=== PATIENT | female | born 1955 | race Caucasian/White ===

== ENCOUNTER → 2016-06-04 | Outpatient (CLI) | payer OTHER ==
[~2016-06-04] VITALS: Ht 162.6 cm; Wt 104.3 kg
[~2016-06-04] MED LIST: ALDOMET250 MG PO; ARMOUR THYROID180 M1 PO; ARMOUR THYROID60 M1 PO; ASPIR 8181 MG PO; B12INJ IJ; BUDEPRION SR150 MG PO; CALCIUM 500 +1 EAC5 PO; CELEXA10 MG PO; CENTRUM SILVER1 EAC4 PO; CLARITIN10 M2 PO; COLACE100 MG PO; CYMBALTA60 MG PO; DESYREL50 MG PO; DICLOFENAC SOD50 M1 PO; DICLOFENAC SOD50 MG PO; DILT-XR120 MG PO; DILTIAZEM 24HR240 MG PO; DILTIAZEM ER120 M1 PO; DURAGESIC25 MCG/HR TP; EFFEXOR PO; ESTRACE1 MG PO; ESTRADIOL 1 MG T1 M1 PO; FENTANYL PA50 MCG/HR TRANSDERM; FLEXERIL PO; FUROSEMIDE 80 M80 M1 PO; HYDRALAZINE HC100 MG PO; IBUPROFEN 600600 M1 PO; LOVAZA1000 MG PO; LYRICA150 MG PO; METHADONE HCL5 MG PO; METHYLIN20 MG PO; MYRBETRIQ50 MG PO; OXYCODONE HCL5 M1 PO; OXYCONTIN CR 1010 M1 PO; PERCOCET 10-321 EACH PO; PERCOCET 5-3251 EACH PO; PERCOCET 7.5-31 EACH PO; PREDNISONE 5 MG5 M1 PO; PREMPRO 0.625-1 EACH PO; PRISTIQ50 MG PO; PROBIOTIC1 EAC1 PO; PROGESTERONE200 MG PO; PROZAC 20 MG20 MG PO; ROBAXIN 750 MG750 M1 PO; SYMBICORT160 MCG/4. INH; TIROSINT100 MCG PO; TIZANIDINE; TIZANIDINE HCL4 M1 PO; TRAMADOL 50 MG50 MG PO; TRIAMTERENE-HC1 EAC1 PO; VITAMIN B 6 PO; VITAMIN D3400 UNIT PO; WELLBUTRIN XL300 MG PO
--- NOTE | ~2016-06-04 | HPC ---
[address] [place] [address] PAIN MANAGEMENT CONSULTATION Name: ODALYS KAHN Room #: REG [facility] M.Luis M.#: [id number] Admission: 06/04/16 Attend Phys: Aren Brown DO Discharge: Date of : 55 Report #: [id number] THIS REPORT FOR: //name// CC: Lars Joseph MD DATE OF SERVICE: 06/04/2016 REFERRING PHYSICIAN: Dr. Manish Joseph. CHIEF COMPLAINT: Neck pain. HISTORY OF PRESENT ILLNESS: As you know, the patient is a morbidly obese 61-year-old female with a longstanding history of neck and back pain. Apparently, she has undergone surgery for her back pain, but continues to experience some neck pain. She has been advised by neurosurgery at this time. She is not a surgical candidate to undergo treatment for cervical radicular symptoms and was sent to our clinic to trial epidural injection. She is placing pain score at 7/10, states the pain is sharp, constant, stabbing, exacerbated with walking, standing, improves with sitting and medications. She returns today per the request of Dr. Manish Joseph for a cervical epidural injection. ALLERGIES: PROVERA, HYDROCODONE, IBUPROFEN, GABAPENTIN, TRAZODONE, MEPERIDINE. CURRENT MEDICATIONS: Estradiol, fentanyl, calcium carbonate, multivitamin, docusate sodium, aspirin, citalopram, lactobacillus, cholecalciferol, [place] Thyroid, methocarbamol, bupropion, omega-3 fish oil, loratadine, diltiazem, diclofenac, and pregabalin. SOCIAL HISTORY: The patient denies tobacco, IV or illicit drug use. She is unemployed. She is a newly . She is trying to collect workmen's compensation. She is unaccompanied today. IMAGING: No new imaging available. PHYSICAL EXAMINATION: VITAL SIGNS: Blood pressure 147/64, pulse is 96, respiratory rate 16, unlabored. The patient is 96% on room air. Height 5 feet 4 inches tall, weight 230 pounds, BMI calculated 39.5. GENERAL: Well-developed, well-nourished, well-hydrated, morbidly obese 61-year-old female appearing her stated age. Pain is rated at 7/10. HEENT: Normocephalic and atraumatic. Pupils equal, round, reactive to light. EXTREMITIES: Show no clubbing, no cyanosis, no edema. MUSCULOSKELETAL: Upper extremity strength appears equal and symmetrical 5/5. Deconditioning noted bilaterally. Spurling's test is equivocal. [address] [address] PAIN MANAGEMENT CONSULTATION Name: ODALYS KAHN Room #: REG [facility] Georgina#: [id number] Admission: 06/04/16 Attend Phys: Aren Brown DO Discharge: Date of : 55 Report #: [id number] provocation test causes intensification in neck pain. Muscle bulk and tone equal and symmetrical in lower extremities, intact to light touch from C5-T1 dermatomes. ASSESSMENT: 1. Cervical radiculopathy. 2. Cervical spondylosis with radiculopathy. 3. Displacement of cervical intervertebral disk. 4. Cervical spinal stenosis. 5. Chronic intractable pain. PLAN: 1. The patient returns today in followup visit at the request of Dr. Monster Joseph for a cervical epidural injection. We have discussed with the patient the risks and the benefits of this procedure. These risks include but not necessarily limited to bleeding, bruising, infection, worsening pain, no relief of pain, also risk of temporary or permanent muscle weakness, temporary or permanent nerve damage, possible paralysis, post-dural puncture, headache and . The patient states understood and wished to proceed. 2. No medication changes were made at today's visit. The patient to continue current medical therapy as previously prescribed. 3. The patient to return to our clinic in approximately 2 months. At that time, review efficacy of the cervical epidural injection and determine if a repeat injection might be necessary. PROCEDURE NOTE: DESCRIPTION OF PROCEDURE: C7-T1 cervical epidural steroid injection under fluoroscopic guidance. After obtaining written consent, the patient was taken back to fluoroscopy suite, placed in prone position with separate pillows under chest and forehead to decrease cervical lordosis. Skin overlying the cervical area prepped and draped in aseptic fashion. C7-T1 cervical interspace identified by AP fluoroscopy. Skin and subcutaneous tissue overlying the target site of injection was anesthetized with 3 mL of 1% lidocaine. A 20-gauge 4-1/2 inch Tuohy needle was advanced under fluoroscopic guidance towards the epidural space using a midline approach. Epidural space was identified using loss of resistance to air technique. After negative aspiration for heme and cerebrospinal fluid, 1 mL of Omnipaque was injected. A cervical epidurogram was confirmed using both AP and lateral fluoroscopy. After negative aspiration for heme or cerebrospinal fluid, 5 mL of a solution containing 2 mL 40 mg per mL, 80 mg total triamcinolone, 3 mL lidocaine 1% injected slowly. Needle retracted snf and flushed with 1 mL of 1% lidocaine and removed. Sterile bandage placed over injection site. [facility] [address] [place] [address] PAIN MANAGEMENT CONSULTATION Name: ODALYS KAHN Room #: REG CLI TabCelso#: [id number] Admission: 06/04/16 Attend Phys: Aren Brown DO Discharge: Date of : 55 Report #: [id number] The patient tolerated procedure well, carefully escorted to recovery room in stable condition. No apparent complications. After meeting discharge criteria, the patient discharged home. By: [id number] Aren Brown DO /karthikeyan
[2016-06-04 09:12] VITALS: BP 147/64
== END | disposition home or self-care (01) ==
LOC: PAIN 07:02
DX: M50.23 Other cervical disc displacement, cervicothoracic region (principal); M47.22 Other spondylosis with radiculopathy, cervical region; M48.02 Spinal stenosis, cervical region; G89.29 Other chronic pain; E66.01 Morbid (severe) obesity due to excess calories; Z68.39 Body mass index [BMI] 39.0-39.9, adult; Z98.890 Other specified postprocedural states

== ENCOUNTER → 2016-11-06 | Outpatient (CLI) | payer OTHER ==
[~2016-11-06] MED LIST changes: +ALEVE220 MG PO; +NATURE-THRO113.75 MG PO
--- NOTE | ~2016-11-06 | HPC ---
[facility] [place] [address] PAIN MANAGEMENT CONSULTATION Name: ODALYS KAHN Room #: REG [facility] Tab.#: [id number] Admission: 11/06/16 Attend Phys: Aren Brown DO Discharge: Date of : 55 Report #: [id number] THIS REPORT FOR: //name// CC: Lars MEJIA DATE OF SERVICE: 11/06/2016 DATE OF SERVICE: 11/06/2016 CHIEF COMPLAINT: Low back pain with radiation down the right lower extremity. HISTORY OF PRESENT ILLNESS: As you know, the patient is a 61-year-old female, who has referred herself back to our clinic with low back pain, right lower extremity pain with paresthesias. She describes pain as burning, constant, electrical in sensation, places the current pain score at 7/10. The patient indicates that she had surgery at Dr. Cabral at undergoing a laminectomy at the L3-L4 level with improvement in symptoms transiently unfortunately her pain has returned. She returns today in followup visit to discuss her concerns about 7/10 pain. The patient indicates pain is exacerbated with standing, walking, lying and bending, and getting out of bed, improves with medications, sitting in recliner. She returns today in followup visit having referred herself back to our clinic with low back and right lower extremity pain. She has not followed up with a neurosurgeon. ALLERGIES: PROVERA, HYDROCODONE, IBUPROFEN, GABAPENTIN, TRAZODONE, MEPERIDINE. CURRENT MEDICATIONS: ____, naproxen, estradiol, fentanyl, vitamin B6, calcium carbonate, multivitamin, docusate sodium, aspirin, citalopram, lactobacillus, cholecalciferol, methocarbamol, bupropion, omega-3 fish oil, loratadine, diazepam, prednisone, and Lyrica. SOCIAL HISTORY: The patient denies tobacco, IV or illicit drug use. She is unemployed. She is on disability. She is unaccompanied today. IMAGING: No new imaging available. PHYSICAL EXAMINATION: VITAL SIGNS: Blood pressure 144/74, pulse 79, respiratory rate 20, unlabored. The patient is 97% on room air, height 5 feet 4 inches tall. Weight 235 pounds, BMI calculated at 40. GENERAL: Well developed, well nourished, well hydrated, morbidly obese 61-year-old female, appears her stated age, placing pain score 7/10. HEENT: Normocephalic, atraumatic. Pupils equal, round, [place] [address] PAIN MANAGEMENT CONSULTATION Name: ODALYS KAHN Room #: REG [facility]..#: [id number] Admission: 11/06/16 Attend Phys: Aren Brown DO Discharge: Date of : 55 Report #: [id number] Extraocular muscles are intact. Sclerae nonicteric, without injection. EXTREMITIES: Show no clubbing, no cyanosis, no edema. MUSCULOSKELETAL: Lower extremity strength appears equal and symmetrical 5/5. There is reduced muscle bulk on the right when compared to left. The patient states unable to actively flex her hip or extend her knee. There is weakness noted with this activity. Deep tendon reflexes are reduced on the right when compared to left over the patella. Normal Achilles. Gait is antalgic favoring right lower extremity over left. ASSESSMENT: 1. Lumbar radiculopathy. 2. Failed lumbar surgery. 3. 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 4. Chronic low back pain. 5. Chronic intractable pain. PLAN: 1. The patient has referred herself back to our clinic with ongoing right leg pain and right lower extremity pain with paresthesias. The patient indicates that she is "unable to move her right leg and unable to do activities of daily living due to increased leg pain." I have discussed with the patient at length our concerns of myelopathy. I do not have any imaging to determine the potential source of the symptoms, but given the fact the patient has progressively worsened since surgery, I recommend strongly she return to see her surgeon immediately. Imaging will be necessary to be obtained as well as the EMG to help coordinate treatment options. I feel at this time, the patient needs to follow up with her neurosurgeon. We do not have any information here to determine the type of surgery she had nor can she remember what type of surgery it was. The incision appears to be over the L3-L4 level, though this is only estimation based on positioning of the surgical incision. I strongly recommend the patient follow up with her physician as quickly as possible. 2. Would recommend increasing her Lyrica for pain control. She is at 150 mg 3 times a day. We will increase by 50 mg 3 times a day to a total of 600 mg per day. I have given the patient samples of the medication at 50 mg to add to her existing 150 mg dose in hopes of improving pain further. 3. Strongly recommend the patient follow up with Dr. Cabral at , as this weakening right lower extremity is quite concerning. I would recommend further evaluation and possible surgical options if necessary although imaging will be necessary, as will likely an EMG. We will defer to the neurosurgery team, who performed the surgery on the patient for her lumbar radiculopathy and be available to see the patient back in followup visit as necessary. By: D: 08/709 0742 Aren Brown DO /karthikeyan
[2016-11-06 11:01] VITALS: BP 144/74
== END ==
LOC: PAIN 07:08
DX: M54.16 Radiculopathy, lumbar region (principal)

== ENCOUNTER → 2016-12-17 | Outpatient (CLI) | payer OTHER ==
[~2016-12-17] VITALS: Ht 162.6 cm; Wt 105.2 kg
--- NOTE | ~2016-12-17 | HPC ---
[facility] [place] [address] PAIN MANAGEMENT CONSULTATION Name: ODALYS KAHN Room #: REG [facility]..#: [id number] Admission: 12/17/16 Attend Phys: Aren Brown DO Discharge: Date of : 55 Report #: [id number] THIS REPORT FOR: //name// CC: Lars Gonzalez DATE OF SERVICE: 12/17/2016 REFERRING PHYSICIAN: Felix Null MD CHIEF COMPLAINT: Neck pain, bilateral upper extremity pain with paresthesias. HISTORY OF PRESENT ILLNESS: As you know, the patient is a morbidly obese 61-year-old female with longstanding history of neck pain and bilateral lower extremity pain. She returns today to undergo cervical epidural injection under fluoroscopic guidance to address 7/10 pain. She states her pain is sharp, shooting, and spasming in sensation, exacerbated with movement, improves with "sitting still." The patient has returned today in followup visit per the request of her neurosurgeon to undergo cervical epidural injection under fluoroscopic guidance. ALLERGIES: PROVERA, HYDROCODONE, IBUPROFEN, GABAPENTIN, TRAZODONE, and MEPERIDINE. CURRENT MEDICATIONS: Nature-Throid 113.75 mg once a day, naproxen 220 mg twice a day, estradiol 1 mg once a day, pregabalin 150 mg 3 times a day, prednisone 5 mg twice a day, diazepam 120 mg once a day, loratadine 10 mg per day, omega-3 fish oil 1 tab per day, bupropion XL 300 mg twice a day, methocarbamol 750 mg 4 times a day, cholecalciferol 4000 units per day, lactobacillus 1 tab per day, citalopram 10 mg per day, aspirin 81 mg per day, Colace 100 mg per day, multivitamin 1 tab per day, calcium carbonate 1 tab per day, and Duragesic patch 25 mcg q.72 hours. SOCIAL HISTORY: The patient denies tobacco, IV or illicit drug use. She is unemployed. She is on disability. She is accompanied by her present in room today. IMAGING: No new imaging available. PHYSICAL EXAMINATION: VITAL SIGNS: Blood pressure 146/76, pulse 83, respiratory rate 14 and unlabored, the patient is 98% on room air, height 5 feet 4 inches tall, weight 232 pounds, and BMI calculated 39.8[place] [address] PAIN MANAGEMENT CONSULTATION Name: ODALYS KAHN Room #: REG CL Georgina#: [id number] Admission: 12/17/16 Attend Phys: Aren Brown DO Discharge: Date of : 55 Report #: [id number] GENERAL: Well-developed, well-nourished, well-hydrated, morbidly obese 61-year-old female, appearing her stated age, placing current pain score at 7/10. HEENT: Normocephalic, atraumatic. Pupils are equal, round, and reactive to light. Extraocular muscles are intact. Sclerae nonicteric without injection. EXTREMITIES: Show no clubbing, no cyanosis, and no edema. MUSCULOSKELETAL: Upper extremity strength appears equal and symmetrical 5/5. Deconditioning is noted bilaterally. Muscle bulk and tone appears symmetrical. Spurlings test is negative. Cervical provocation testing causes slight intensification of pain. ASSESSMENT: 1. Chronic cervical radiculopathy. 2. Cervical spondylosis with radicular symptoms. 3. Failed cervical spine surgery. 4. Chronic intractable pain. PLAN: 1. The patient has returned today in followup visit requesting to undergo a cervical epidural injection under fluoroscopic guidance to address 7/10 pain. The patient has been referred back to our clinic by her neurosurgeon to undergo next in the series of cervical epidural injections in hopes of improving pain. We have received precertification from the third constitution party payer for the patient to undergo the procedure. She has been advised the risks and benefits of this procedure. These risks include, but are not necessarily limited to bleeding, bruising, infection, worsening of pain, no relief of pain, also risk of temporary or permanent muscle weakness, temporary or permanent nerve damage, possible paralysis and . The patient states understood and wished to proceed. 2. No medication changes were provided at today's visit. The patient to continue current medical therapy as previously prescribed. She does have samples of Lyrica, she has been taking at 150 mg 3 times a day, she can continue this medication that is being now provided by her PCP. 3. We will see the patient back in followup visit on an as needed basis for the next in the series of cervical epidural injections. PROCEDURE NOTE DESCRIPTION OF PROCEDURE: C7-T1 cervical epidural steroid injection under fluoroscopic guidance. After obtaining written consent, the patient was taken back to fluoroscopy suite, placed in prone position with separate pillows under chest and forehead to decrease cervical lordosis. Skin overlying cervical area prepped and draped in aseptic fashion. C7-T1 cervical interspace was identified by AP fluoroscopy. Skin and subcutaneous tissue overlying the target site of injection was [address] [address] PAIN MANAGEMENT CONSULTATION Name: ODALYS KAHN Room #: REG CLRoe Erickson#: [id number] Admission: 12/17/16 Attend Phys: Aren Brown DO Discharge: Date of : 55 Report #: [id number] anesthetized with 3 mL of 1% lidocaine. A 20-gauge 4-1/2-inch Tuohy needle was advanced under fluoroscopic guidance towards the epidural space using a midline approach. Epidural space identified using loss of resistance to air technique. After negative aspiration for heme or cerebrospinal fluid, 1 mL of Omnipaque was injected. A cervical epidurogram was confirmed using both AP and lateral fluoroscopy. After negative aspiration for heme or cerebrospinal fluid, 5 mL of a solution containing 2 mL 40 mg per mL, 80 mg total triamcinolone, 3 mL lidocaine 1% was injected slowly. Needle retracted nursing home, needle tract flushed 3 mL 1% lidocaine. Needle then removed. Sterile bandage placed over injection site. No new motor deficits present in the upper extremity following the procedure. The patient tolerated the procedure well, carefully escorted to recovery room in stable condition. No apparent complication. After meeting discharge criteria, the patient discharged home. <ELECTRONICALLY SIGNED> By: Aren Brown DO 12/25/16 0858 [id number] Aren Brown DO /nt
[2016-12-17 12:54] VITALS: BP 146/76
== END | disposition home or self-care (01) ==
LOC: PAIN 08:46
DX: M47.22 Other spondylosis with radiculopathy, cervical region (principal); G89.29 Other chronic pain; M96.1 Postlaminectomy syndrome, not elsewhere classified; Z88.6 Allergy status to analgesic agent; Z88.8 Allergy status to other drugs, medicaments and biological substances; Z98.890 Other specified postprocedural states; Z79.82 Long term (current) use of aspirin

== ENCOUNTER → 2017-07-09 | Outpatient (CLI) | payer OTHER ==
[~2017-07-09] VITALS: Ht 162.6 cm; Wt 107.2 kg
--- NOTE | ~2017-07-09 | HPC ---
[facility] [place] [address] PAIN MANAGEMENT CONSULTATION Name: ODALYS KAHN Room #: REG [facility]..#: [id number] Admission: 07/09/17 Attend Phys: Aren Brown DO Discharge: Date of : 55 Report #: [id number] THIS REPORT FOR: //name// CC: Lars NAVA DATE OF SERVICE: 07/09/2017 REFERRING PHYSICIANS: Lars Uriostegui DO and Manish Joseph MD CHIEF COMPLAINT: Neck pain, bilateral upper extremity pain and paresthesias. HISTORY OF PRESENT ILLNESS: As you know, the patient is a morbidly obese 62-year-old female returning in followup visit with continued neck pain, bilateral upper extremity pain and paresthesias. She returns today requesting to undergo a cervical epidural injection under fluoroscopic guidance. She denies new injury or new trauma that may have led to symptoms redeveloping. She states her pain is constant, stabbing in sensation, exacerbated with movement, improves with cold temperatures and epidural injections. She places pain score at 6/10. She has had a slow and progressive return of symptoms from an 85% improvement in overall pain all the way back to a 6/10 pain today. She returns requesting a cervical epidural injection to build on success of previous intervention. ALLERGIES: PROVERA, HYDROCODONE, IBUPROFEN, GABAPENTIN, TRAZODONE, and MEPERIDINE. CURRENT MEDICATIONS: Nature-Throid, naproxen, pregabalin, prednisone, loratadine, omega-3 fish oil, bupropion XL, methocarbamol, cholecalciferol, lactobacillus, citalopram, aspirin, Colace, multivitamin, calcium carbonate, and fentanyl. SOCIAL HISTORY: The patient denies tobacco, IV or illicit drug use. She is unemployed. She is on disability. She is receiving workmen's compensation. She is unaccompanied today. IMAGING: No new imaging available. PHYSICAL EXAMINATION: VITAL SIGNS: Blood pressure 129/63, pulse is 92, respiratory rate 16 and unlabored, the patient is 96% on room air, height 5 feet 4 inches tall, weight 236.4 pounds, and BMI calculated 40.6. GENERAL: Well-developed, well-nourished, well-hydrated, class 3 morbidly obese 62-year-old female, appearing stated age, pain is rated at 6/10. [address] [address] PAIN MANAGEMENT CONSULTATION Name: ODALYS KAHN Room #: REG CLI [facility]#: [id number] Admission: 07/09/17 Attend Phys: Aren Brown DO Discharge: Date of : 55 Report #: [id number] HEENT: Normocephalic, atraumatic. Pupils are equal, round, and reactive to light. EXTREMITIES: Show no clubbing, no cyanosis, and no edema. MUSCULOSKELETAL: Upper extremity strength is symmetrical 5/5. Cervical provocation testing causes slight intensification of pain with rotation to the right, negative left. Spurling's test is equivocal. ASSESSMENT: 1. Cervical radiculopathy. 2. Cervical spondylosis with radicular symptoms. 3. Failed cervical spine surgery. 4. Chronic intractable pain. PLAN: 1. The patient returns today in followup visit requesting to undergo a cervical epidural injection under fluoroscopic guidance. The patient had noted 85% improvement in overall pain with previous cervical epidural injection. She returns requesting this injection to be provided today. I advised the patient the risks and benefits, states understood and wished to proceed. 2. No medication changes were made at today's visit. The patient will continue current medical therapy as previously prescribed. 3. The patient will return to our clinic on an as needed basis for next in a series of cervical epidural injections. She has done very well with these injections. We will see her back when necessary. PROCEDURE NOTE DESCRIPTION OF PROCEDURE: Cervical epidural steroid injection under fluoroscopic guidance. After obtaining written consent, the patient was taken back to fluoroscopy suite, placed in prone position with separate pillows under chest and forehead to decrease cervical lordosis. Skin overlying the cervical area was then prepped and draped in aseptic fashion. Cervical intravertebral spaces were identified by AP fluoroscopy. Skin and subcutaneous tissue overlying target site of injection was anesthetized with 3 mL of 1% lidocaine. A 20-gauge 4-1/2-inch Tuohy needle advanced under fluoroscopic guidance towards the epidural space using a midline approach. Epidural space identified using loss of resistance to air technique. After negative aspiration for heme or cerebrospinal fluid, 1 mL of Omnipaque was injected. A cervical epidurogram was confirmed using both AP and oblique fluoroscopy. After negative aspiration for heme or cerebrospinal fluid, 5 mL of a solution containing 2 mL 40 mg per mL, 80 mg total triamcinolone, 3 mL lidocaine 1% injected slowly. Needle retracted fci, flushed with 1 mL of 1% lidocaine and removed. Sterile bandage placed over injection site. No new motor deficits present in the upper extremity [address] [address] PAIN MANAGEMENT CONSULTATION Name: ODALYS KAHN Room #: REG [facility]#: [id number] Admission: 07/09/17 Attend Phys: Aren Brown DO Discharge: Date of : 55 Report #: [id number] following procedure. The patient tolerated the procedure well, carefully escorted to recovery room in stable condition. No apparent complications. After meeting discharge criteria, the patient discharged home. <ELECTRONICALLY SIGNED> By: Aren Brown DO 07/16/17 1207 [id number] 1110 Aren Brown DO /nt
[2017-07-09 09:02] VITALS: BP 129/63
== END | disposition home or self-care (01) ==
LOC: PAIN 06:47
DX: M47.22 Other spondylosis with radiculopathy, cervical region (principal); G89.29 Other chronic pain; M96.1 Postlaminectomy syndrome, not elsewhere classified; Z79.891 Long term (current) use of opiate analgesic; Z88.8 Allergy status to other drugs, medicaments and biological substances; Z79.82 Long term (current) use of aspirin; Z79.899 Other long term (current) drug therapy; E66.01 Morbid (severe) obesity due to excess calories

== ENCOUNTER → 2019-09-22 | Outpatient (CLI) | payer OTHER ==
[~2019-09-22] VITALS: Ht 162.6 cm; Wt 100.7 kg
[~2019-09-22] MED LIST changes: +ABILIFY 5 MG TAB5 MG PO; +AMBIEN 10 MG TA10 MG PO; +CYTOMEL 5MCG TA5 MCG PO; +EFFEXOR XR150 MG PO; +MELOXICAM15 MG PO; +PROVERA5 MG PO; +SYMPROIC0.2 MG PO; +SYNTHROID112 MC1 PO; +ZANAFLEX4 M1 PO
--- NOTE | ~2019-09-22 | HPC ---
[facility] [place] [address] PAIN MANAGEMENT CONSULTATION Name: ODALYS KAHN Room #: REG [facility] M..#: [id number] Admission: 09/22/19 Attend Phys: Aren Brown DO Discharge: Date of : 55 Report #: [id number] THIS REPORT FOR: cc: PHILL NAVA DO Physician not on staff Aren Brown DO ~ CC: Aern Pollock [place] Physician staff DATE OF SERVICE: 09/22/2019 CHIEF COMPLAINT: Low back pain, bilateral lower extremity pain. HISTORY OF PRESENT ILLNESS: As you know, the patient is a 64-year-old female with longstanding history of various pain generators. We saw the patient in consultation and throughout 2011 through 2017 for cervical radicular symptoms for which she underwent cervical epidural injections. She has been lost followup visit since our visit of 07/09/2017. She apparently transferred her care to [facility] where she was being seen by the pain service there. She has been referred back to our clinic to undergo a lumbar epidural injection under fluoroscopic guidance to determine if her symptoms would be amenable. She comes to us today with new imaging studies, which shows multilevel advanced lumbar degenerative joint disease at L2-L3 through L4-L5 and this has progressed since the 2016 exam. There is fairly severe narrowing of the far lateral right recess at L2-L3 due to facet arthropathy and ligamentum flavum hypertrophy. There is significant narrowing at the L4-L5 on the right and lesser degree on the left. Noted surgical scars. Due to these findings in this MRI, the patient was sent to our clinic to undergo epidural injections to determine if her symptoms would be amenable. If not, she is looking toward surgical options. She denies injury or trauma that may have led to symptom development. ALLERGIES: PROVERA, IBUPROFEN, GABAPENTIN, TRAZODONE, MEPERIDINE. CURRENT MEDICATIONS: Meloxicam 15 mg once a day, tizanidine 4 mg p.o. at bedtime, Percocet 5/325 one tab every 4 hours p.r.n. for pain, Symproic 0.2 mg once a day, liothyronine 5 mcg per day, venlafaxine 150 mg once a day, zolpidem 10 mg p.o. at bedtime, levothyroxine 112 mcg per day, Provera 5 mg once a day, aripiprazole 5 mg once a day, estradiol 1 mg once a day, calcium carbonate 1 tab per day, methocarbamol 750 mg 4 times a day, omega-3 fish oil 1 tab per day, diltiazem XR 120 mg once a day, prednisone 5 mg once a day, Lyrica 150 mg 3 times a day. SOCIAL HISTORY: The patient reports herself a nonsmoker. Denies IV or illicit drug use. Denies any chronic alcohol use. She [place] [address] PAIN MANAGEMENT CONSULTATION Name: ODALYS KAHN Room #: REG SUZE Erickson#: [id number] Admission: 09/22/19 Attend Phys: Aren Brown DO Discharge: Date of : 55 Report #: [id number] unaccompanied at today's visit. IMAGING: MRI of the lumbar spine obtained on 02/12/2019 shows multilevel advanced degenerative changes of the lumbar spine, most pronounced at L2-L3 and L4-L5. There is increased severe narrowing of the far lateral recess at L2-L3. There is a foraminal compromise at L4-L5 and L3-L4. PHYSICAL EXAMINATION: VITAL SIGNS: Blood pressure 165/86, pulse 121, respiratory rate 22 and unlabored. The patient is 97% on room air. Height 5 feet 4 inches tall, weight 222 pounds, BMI calculated at 38.1. GENERAL: Well-developed, well-nourished, well-hydrated exogenously obese 64-year-old female, appears her stated age. She is in no acute distress, awake, alert and oriented x 3. Current pain score is rated 7/10. HEENT: Normocephalic, atraumatic. Pupils equal, round and reactive to light. NEUROLOGIC: Speech fluent. The patient deemed a fair historian. LUNGS: Clear, no wheeze, rhonchi or rales. CARDIOVASCULAR: Tachycardic. No appreciable gallop or rub. ABDOMEN: Soft, obese, normoactive bowel sounds. EXTREMITIES: Show no clubbing, no cyanosis, no edema. MUSCULOSKELETAL: There is some palpatory tenderness noted over the paraspinal musculature of lower lumbar spine. No spinous process tenderness. Well-healed surgical scars are noted in the lumbar region. Seated straight leg raising negative. Supine straight leg raising negative. Blake's test is negative. Modified Gaenslen's positive for axial low back pain. Ankle clonus negative. Babinski is negative. Modified Gaenslen's positive for axial low back pain, no radiation of symptoms. PQRS: The patient has known arthritic changes of the lumbar spine, bilateral hips and knees. No rheumatoid arthritis diagnosis. The patient places pain intensity at 7/10. She is a fall risk, has not had a fall in last 3 months. She utilizes ambulatory devices for balance. She is not on blood thinners, but is treated for hypertension. She is on chronic opioids and does have a low opiate addiction potential. Pain impact is 58 of 70. ASSESSMENT: 1. Lumbar radiculopathy. 2. Neural foraminal stenosis of the lumbar spine. 3. Lateral recess stenosis of lumbar spine. 4. Degeneration of lumbar spine. 5. Chronic intractable pain. PLAN: 1. The patient has been advised to return to our clinic today to discuss options for treatment for lumbar radiculopathy. We have reviewed the patient's MRI obtained by Dr. Phill Terrazas, her neurosurgeon. This was done in [address] [address] PAIN MANAGEMENT CONSULTATION Name: ODALYS KAHN Room #: REG [facility].#: [id number] Admission: 09/22/19 Attend Phys: Aren Brown DO Discharge: Date of : 55 Report #: [id number] 01/2019. There are changes noted at the L2-L3, L3-L4 and L4-L5 levels that could be contributing to the patient's overall symptoms. She was referred to our clinic to trial epidural injections under fluoroscopic guidance, but wishes to discuss other treatment options. She has sought evaluation at other pain clinics. We advised the patient treatment options, but she wishes to review those with us as well again today. 2. The patient was advised treatment options would include physical therapy, stretching exercise, core strengthening and a concerted effort at weight loss. This would benefit the patient in multiple ways. We discussed medication management with possible rotation from lyrica to another agent to determine if more efficacious can be obtained. We discussed the epidural injection for which the patient was referred to our clinic. We also discussed per the patient's request, the possibility of intrathecal pump, which we do not offer. We discussed a spinal cord stimulator therapy as a way to provide some temporary improvement in symptoms. We also discussed the surgical options, which based on the findings and imaging will likely be necessary. After that review of all the treatment options, the patient chose to undergo the requested lumbar epidural injection. 3. The patient has been advised risks and benefits of a lumbar epidural injection. These risks include but are not necessarily limited to bleeding, bruising, infection, worsening pain, no relief of pain, also risk of temporary or permanent muscle weakness, temporary or permanent nerve damage, possible paralysis and . The patient states understood and wished to proceed. 4. No medication changes made at today's visit. We recommend the patient to continue current medical therapy as previously prescribed. 5. We will see the patient back in followup visit on an as needed basis for the next in the series of lumbar epidural injections. We are hopeful the patient will see good and prolonged benefit with today's procedure. PROCEDURE NOTE DESCRIPTION OF PROCEDURE: Lumbar epidural steroid injection under fluoroscopic guidance. This is the first procedure of the first series that the patient is undergoing. After obtaining written consent, the patient was taken back to the fluoroscopy suite, placed in a prone position with pillow under the abdomen to decrease lumbar lordosis. The skin overlying the lumbosacral area was then prepped and draped in aseptic fashion. The lumbar vertebral interspace was then identified by AP fluoroscopy. The skin and subcutaneous tissue overlying the target site of injection was anesthetized with 3 mL 1% lidocaine. A 20-gauge 4.5 inch Tuohy needle was then advanced under fluoroscopic guidance towards the epidural space using a midline approach. The epidural space was identified using loss of resistance to air technique. After negative aspiration [facility] [address] [place] [address] PAIN MANAGEMENT CONSULTATION Name: ODALYS KAHN Room #: REG [facility] Erickson#: [id number] Admission: 09/22/19 Attend Phys: Aren Brown DO Discharge: Date of : 55 Report #: [id number] for heme or cerebrospinal fluid, a total of 1 mL of Omnipaque was injected. A lumbar epidurogram was confirmed using both AP and lateral fluoroscopy. After negative aspiration for heme or cerebrospinal fluid, 5 mL of solution containing 2 mL 40 mg/mL 80 mg total triamcinolone along with 3 mL of lidocaine 1% was injected in increments. Contrast spread was noted post epidural space. The needle was then retracted approximately half way and needle tract flushed with 1 mL of 1% lidocaine. Needle was then removed. There were no apparent sensory or motor deficits in the lower extremity following the procedure. A sterile bandage was placed over the injection site. The heart rate, pulse, oximetry and blood pressure were continuously monitored after the procedure. There were no apparent complications. The patient tolerated the procedure well and was carefully escorted to the recovery room in stable condition. There were no apparent complications. After meeting discharge criteria, the patient was then discharged home. By: [id number] Aren Brown DO /nt
[2019-09-22 14:56] VITALS: BP 165/86
--- NOTE | 2019-09-22 15:08 | NUR ---
Pain Clinic Assessment: 1. History of Osteoarthritis: ARTHRITIS EVERY WHERE History of Rheumatoid Arthritis: Not Applicable 2. Height: 5 ft. 4 in. 162.6 cm. Weight: 222.0 lb. oz. 100.699 kg. Patient's BMI: 38.1 3. Vital Signs: BP: 165/86 Pulse: 121 Resp: 22 Temp: 02 Sat: 97 ECG Mon: 4. Pain Intensity: 7 5. Fall Risk: Dizziness: N Needs help standing or walking: Y Fallen in the last 3 months: N Fall risk comments: 6. Patient on Blood Thinner: None 7. History of Hypertension: Y 8. Opioid Therapy greater than 6 weeks: N Opiate Contract Signed: 9. Risk Assessment Tool Provided: LOW RISK 04/02 10. Functional Assessment Tool: 11. Recreational Drug Use: Never Drug Type: Tobacco Use: Never Smoker Tobacco Type: Amount or Packs/day: How Many Years: Alcohol Use: No Frequency: Quant:
== END | disposition home or self-care (01) ==
LOC: PAIN 06:49
PROVIDERS: ATTEND Anesthesiology Pain Medicine
DX: M51.16 Intervertebral disc disorders with radiculopathy, lumbar region (principal); M48.061 Spinal stenosis, lumbar region without neurogenic claudication; G89.29 Other chronic pain; I10 Essential (primary) hypertension; M19.90 Unspecified osteoarthritis, unspecified site; Z98.890 Other specified postprocedural states; Z79.899 Other long term (current) drug therapy; Z88.8 Allergy status to other drugs, medicaments and biological substances

== ENCOUNTER → 2019-11-30 | Outpatient (CLI) | payer OTHER ==
[~2019-11-30] VITALS: Ht 162.6 cm; Wt 98.7 kg
[~2019-11-30] MED LIST changes: +EFFEXOR XR75 MG PO
--- NOTE | ~2019-11-30 | HPC ---
[facility] [place] [address] PAIN MANAGEMENT CONSULTATION Name: ODALYS KAHN Room #: REG [facility]..#: [id number] Admission: 11/30/19 Attend Phys: Aren Brown DO Discharge: Date of : 55 Report #: [id number] THIS REPORT FOR: cc: BIRD [employer] Physician not on staff Aren Brown DO ~ CC: Aren Joseph MD Physician staff BIRD BLACK DATE OF SERVICE: 11/30/2019 CHIEF COMPLAINT: Low back pain, bilateral lower extremity pain. HISTORY OF PRESENT ILLNESS: As you know, the patient is a 64-year-old female with longstanding history of various pain generators. She returns today in followup visit with complaints of low back pain, bilateral lower extremity pain. She indicates pain level today of around 8/10. She states pain begins in low back, radiates down both legs equally. She describes the pain as numbness, tingling, sore and stabbing, exacerbated with standing, walking and certain activities, improves with medications, cold compresses, seated position and epidural injections. She returns today in followup visit to discuss the next in the series of epidural injections under fluoroscopic guidance. She also wishes to discuss the possibility of obtaining an electric scooter for mobility. ALLERGIES: PROVERA, IBUPROFEN, GABAPENTIN, TRAZODONE, MEPERIDINE. CURRENT MEDICATIONS: Venlafaxine XR 75 mg 2 tabs per day, meloxicam 15 mg once a day, tizanidine 4 mg at bedtime, Percocet 5/325 one tab every 4 hours p.r.n. for pain, Symproic 0.2 mg as needed, liothyronine 5 mcg per day, zolpidem 10 mg p.o. at bedtime, levothyroxine 112 mcg per day, Provera 5 mg once a day, estradiol 1 mg per day, calcium carbonate 1 tab per day, vitamin D3 400 units once a day, omega-3 fish oil 1 tab per day, diltiazem XR 220 mg per day, prednisone 5 mg 2 tabs per day, Lyrica 150 mg 3 times a day. SOCIAL HISTORY: The patient continues to describe herself as a nonsmoker. Denies IV or illicit drug use. Denies any chronic alcohol use. She is on disability, has been so for years, unaccompanied today. IMAGING: No new imaging available. PQRS: The patient has known arthritic changes of the bilateral shoulders, lumbar spine, bilateral hips, no rheumatoid arthritis. Pain intensity is reported at 8/10. She is not a fall risk nor has she had a fall in last 3 months. She is not on blood thinners, but is treated for hypertension. She is [address] [address] PAIN MANAGEMENT CONSULTATION Name: ODALYS KAHN Room #: REG CL Tab.#: [id number] Admission: 11/30/19 Attend Phys: Aren Brown DO Discharge: Date of : 55 Report #: [id number] on chronic opioids and based on our assessment tool, has a low opioid addiction potential. Pain impact today is 60 or 70, severe interference of daily activities secondary to pain. PHYSICAL EXAMINATION: VITAL SIGNS: Blood pressure 160/96, pulse is 90, respiratory rate 20 and unlabored. The patient is 97% on room air. Height 5 feet 4 inches tall, weight 217.6 pounds, BMI calculated at 37.3. GENERAL: Well-developed, well-nourished, well-hydrated exogenously obese 64-year-old female appearing stated age, pain is rated today 8/10. HEENT: Normocephalic, atraumatic. Pupils equal, round and reactive. EXTREMITIES: Show no clubbing, no cyanosis, no edema. MUSCULOSKELETAL: Lower extremity strength is symmetrical, but deconditioning is noted bilaterally. Muscle bulk and tone is equal and symmetrical in comparing lower extremities. Seated straight leg raising negative. Supine straight leg raising remains negative. Blake's test is positive. There are well-healed surgical scars over the lumbar spine. Gait is antalgic. She is utilizing a roller walker for ambulation. ASSESSMENT: 1. Recurrent lumbar radiculopathy. 2. Neural foraminal stenosis of lumbar spine. 3. Lateral recess stenosis of lumbar spine. 4. Degeneration of lumbar spine. 5. Chronic intractable pain. PLAN: 1. The patient has returned today in followup visit where we have discussed at length her ongoing axial back pain issues. This is suspected to be due to changes in the lumbar spine. She has undergone epidural injections with good efficacy in the past and has been advised to return today. We have advised the patient of the risks and the benefits of this procedure, states understood and wished to proceed. 2. The patient has question whether or not she would be a candidate for an electric scooter. I advised the patient at this time, this would not be conducive to treatment for her axial back pain and lower extremity symptoms. The more activity and exercise she participates and the better she will do overall. Electric scooters become a tool of reliance that then weakens the lower extremities and weakens the core musculature leading to even further problems. We do not recommend an electric scooter until the time, but the patient can no longer ambulate effectively on her own and this is not the case at this time. 3. No medication changes made at today's visit. The patient will continue current medical therapy as previously prescribed. 4. We will see the patient back in followup visit on an as needed basis for possible next in the series of lumbar epidural injections in hopes of improving [facility] [address] [place] [address] PAIN MANAGEMENT CONSULTATION Name: ODALYS KAHN Room #: REG SU[facility] Erickson#: [id number] Admission: 11/30/19 Attend Phys: Aren Brown DO Discharge: Date of : 55 Report #: [id number] pain. PROCEDURE NOTE: DESCRIPTION OF PROCEDURE: L5-S1 intralaminar epidural steroid injection under fluoroscopic guidance. After obtaining written consent, the patient was taken back to fluoroscopy suite, placed in prone position with pillow under abdomen to decrease lumbar lordosis. Skin overlying lumbosacral area then prepped and draped in aseptic fashion. The L5-S1 vertebral interspace identified by AP fluoroscopy. Skin and subcutaneous tissue overlying target site injection anesthetized with 3 mL of 1% lidocaine. A 20-gauge 4-1/2 inch Tuohy needle advanced under fluoroscopic guidance towards the epidural space using a parasagittal approach. Epidural space identified using loss of resistance to air technique. After negative aspiration for heme or cerebrospinal fluid, 1 mL of Omnipaque injected. Lumbar epidurogram confirmed using both AP and lateral fluoroscopy. After negative aspiration for heme or cerebrospinal fluid, 5 mL of a solution containing 2 mL 40 mg per mL, 80 mg total triamcinolone along with 3 mL lidocaine 1% injected slowly. Needle retracted longterm, flushed with 1 mL of 1% lidocaine then removed. Sterile bandage placed over injection site. No new motor deficits present in the lower extremity following procedure. The patient tolerated procedure well, carefully escorted to recovery room in stable condition. No apparent complications. After meeting discharge criteria, the patient discharged home. By: [id number] Aren Brown DO /nt
[2019-11-30 09:41] VITALS: BP 160/96
--- NOTE | 2019-11-30 09:44 | NUR ---
Pain Clinic Assessment: 1. History of Osteoarthritis: ARTHRITIS EVERY WHERE History of Rheumatoid Arthritis: Not Applicable 2. Height: 5 ft. 4 in. 162.6 cm. Weight: 217.6 lb. oz. 98.703 kg. Patient's BMI: 37.3 3. Vital Signs: BP: 160/96 Pulse: 90 Resp: 20 Temp: 02 Sat: 97 ECG Mon: 4. Pain Intensity: 8 5. Fall Risk: Dizziness: N Needs help standing or walking: N Fallen in the last 3 months: N Fall risk comments: 6. Patient on Blood Thinner: None 7. History of Hypertension: Y 8. Opioid Therapy greater than 6 weeks: N Opiate Contract Signed: 9. Risk Assessment Tool Provided: LOW RISK 04/02 10. Functional Assessment Tool: 11. Recreational Drug Use: Never Drug Type: Tobacco Use: Never Smoker Tobacco Type: Amount or Packs/day: How Many Years: Alcohol Use: No Frequency: Quant:
== END | disposition home or self-care (01) ==
LOC: PAIN 06:51
PROVIDERS: ATTEND Anesthesiology Pain Medicine
DX: M51.16 Intervertebral disc disorders with radiculopathy, lumbar region (principal); M48.061 Spinal stenosis, lumbar region without neurogenic claudication; G89.29 Other chronic pain; I10 Essential (primary) hypertension; M19.90 Unspecified osteoarthritis, unspecified site; Z98.890 Other specified postprocedural states; Z79.899 Other long term (current) drug therapy; Z88.8 Allergy status to other drugs, medicaments and biological substances

== ENCOUNTER → 2020-03-14 | Outpatient (CLI) | payer OTHER ==
[~2020-03-14] VITALS: Ht 162.6 cm; Wt 98.4 kg
[2020-03-14 13:40] VITALS: BP 118/60
--- NOTE | 2020-03-14 13:57 | NUR ---
Pain Clinic Assessment: 1. History of Osteoarthritis: ARTHRITIS History of Rheumatoid Arthritis: Not Applicable 2. Height: 5 ft. 4 in. 162.6 cm. Weight: 217.0 lb. oz. 98.431 kg. Patient's BMI: 37.2 3. Vital Signs: BP: 118/60 Pulse: 101 Resp: 20 Temp: 02 Sat: 98 ECG Mon: 4. Pain Intensity: 10 5. Fall Risk: Dizziness: N Needs help standing or walking: Y Fallen in the last 3 months: N Fall risk comments: 6. Patient on Blood Thinner: None 7. History of Hypertension: Y 8. Opioid Therapy greater than 6 weeks: N Opiate Contract Signed: 9. Risk Assessment Tool Provided: LOW RISK / 10. Functional Assessment Tool: 11. Recreational Drug Use: Never Drug Type: Tobacco Use: Never Smoker Tobacco Type: Amount or Packs/day: How Many Years: Alcohol Use: No Frequency: Quant:
--- NOTE | 2020-03-15 11:20 | HPC ---
[facility] [place] [address] PAIN MANAGEMENT CONSULTATION Name: ODALYS KAHN Room #: REG [facility] [place].#: [id number] Admission: 03/14/20 Attend Phys: Aren Brown DO Discharge: Date of : 55 Report #: [id number] THIS REPORT FOR: cc: BIRD BLACK Physician not on staff Aren Brown DO ~ DATE OF SERVICE: 03/14/2020 CHIEF COMPLAINT: Low back pain, bilateral lower extremity pain with paresthesias. HISTORY OF PRESENT ILLNESS: As you know, the patient is a 64-year-old female with longstanding history of lumbar radiculopathy. She was referred to our clinic initially to address cervical radicular issues for which she underwent cervical epidural injections with good effect. She returns per the request of her primary care physician to address new onset lumbar radiculopathy. This has been years ago. She continues to undergo epidural injections under fluoroscopic guidance to address lumbar radicular pain. She returns today in followup visit stating a pain score of around 10/10 involving low back and bilateral lower extremities. She reports good efficacy with the epidural injections in the past, returning today to undergo next in the series. She denies injury or trauma that may have led to symptom development. She has not had any significant changes in her medication management since our last visit. There is no medications that would preclude the patient from undergoing an epidural injection as requested today. ALLERGIES: PROVERA, IBUPROFEN, GABAPENTIN, TRAZODONE, MEPERIDINE. CURRENT MEDICATIONS: Venlafaxine, meloxicam, tizanidine, Symproic, Cytomel, zolpidem, levothyroxine, Provera, estradiol, calcium carbonate, cholecalciferol, diltiazem, pregabalin. SOCIAL HISTORY: The patient denies tobacco use. Denies IV or illicit drug use. Denies any chronic alcohol use. She is on disability and has been so for years. She is accompanied by her ex- who is present in the hospital, but not in room due to COVID restrictions. IMAGING: No new imaging available. PQRS: The patient has known arthritic changes of the cervical spine, bilateral shoulders, lumbar spine, bilateral hips. No rheumatoid arthritis. She places pain intensity today at 10/10. She is a fall risk, but has not had a fall in last 3 months. She is utilizing a wheelchair for mobility. She is not on blood thinners, but is treated for hypertension. She is on chronic opioids, has a low opiate addiction potential based on our assessment tool. Pain impact 70/70 indicating complete interference of daily activities secondary to pain. [address] [address] PAIN MANAGEMENT CONSULTATION Name: ODALYS KAHN Room #: REG [facility] [place]on#: [id number] Admission: 03/14/20 Attend Phys: Aren Brown DO Discharge: Date of : 55 Report #: [id number] PHYSICAL EXAMINATION: VITAL SIGNS: Blood pressure 118/60, pulse is 101, respiratory rate 20 and unlabored. The patient is 98% on room air. Height 5 feet 4 inches tall, weight 217 pounds, BMI calculated 37.2. GENERAL: Well-developed, well-nourished, well-hydrated exogenously obese 64-year-old female appearing stated age, placing current pain score at 10/10. HEENT: Normocephalic, atraumatic. Pupils equal, round and reactive. NEUROLOGIC: Speech fluent. The patient is in a mask due to COVID regulations. EXTREMITIES: Show no clubbing, no cyanosis. No significant edema. MUSCULOSKELETAL: Lower extremity strength remains symmetrical, but deconditioned. Muscle bulk and tone is equal and symmetrical in comparing lower extremities. Seated straight leg raising negative. Supine straight leg raising negative. Blake's test is positive. ASSESSMENT: 1. Recurrent lumbar radiculopathy. 2. Neural foraminal stenosis of lumbar spine. 3. Lateral recess stenosis of lumbar spine. 4. Degeneration of lumbar spine. 5. Chronic intractable pain. PLAN: 1. The patient returns today in followup visit requesting to undergo lumbar epidural injection under fluoroscopic guidance. She indicates pain that radiates down both legs equally. She is denying any new injury or trauma that may have led to symptom development. She returns today requesting the next in a series of epidural injections. She does feel that the epidural injections are providing benefit, but unfortunately the benefit of these injections have begun to lessen. She is considering surgical options, but returns today requesting a lumbar epidural injection in hopes of further pain improvement. She has been advised risks and benefits, states understood and wished to proceed. 2. No medication changes made at today's visit. The patient will continue current medical therapy as prior prescribed. 3. We plan to see the patient back in followup visit for possible next in the series of epidural injections. We are hopeful the patient will see good and prolonged benefit with today's procedure. PROCEDURE NOTE DESCRIPTION OF PROCEDURE: L5-S1 interlaminar epidural steroid injection under fluoroscopic guidance. After obtaining written consent, the patient was taken back to fluoroscopy suite, placed in prone position with pillow under abdomen to decrease lumbar lordosis. Skin overlying the lumbosacral area was then prepped and draped in [address] [address] PAIN MANAGEMENT CONSULTATION Name: ODALYS KAHN Room #: REG [facility]#: [id number] Admission: 03/14/20 Attend Phys: Aren Brown DO Discharge: Date of : 55 Report #: [id number] aseptic fashion. Lumbar intervertebral spaces were identified by AP fluoroscopy. Skin and subcutaneous tissue overlying the target site injection anesthetized with 3 mL of 1% lidocaine. A 20-gauge 4-1/2 inch Tuohy needle was advanced under fluoroscopic guidance towards the epidural space using a parasagittal approach. Epidural space identified using loss of resistance to air technique. After negative aspiration for heme or cerebrospinal fluid, 1 mL of Omnipaque injected. Lumbar epidurogram was confirmed using both AP and lateral fluoroscopy. After negative aspiration for heme or cerebrospinal fluid, 5 mL of a solution containing 2 mL 40 mg per mL, 80 mg total triamcinolone along with 3 mL of lidocaine 1% injected slowly. Needle retracted care home, flushed with 1 mL of 1% lidocaine and removed. Sterile bandage placed over injection site. No new motor deficits present in lower extremity following procedure. The patient tolerated the procedure well, carefully escorted to recovery room in stable condition. No apparent complications. After meeting discharge criteria, the patient discharged home. <ELECTRONICALLY SIGNED> By: Aren Brown DO 03/15/20 1120 [id number] Aren Brown DO /nt
== END | disposition home or self-care (01) ==
LOC: PAIN 06:49
PROVIDERS: ATTEND Anesthesiology Pain Medicine
DX: M51.16 Intervertebral disc disorders with radiculopathy, lumbar region (principal); M48.061 Spinal stenosis, lumbar region without neurogenic claudication; G89.29 Other chronic pain; I10 Essential (primary) hypertension; M19.90 Unspecified osteoarthritis, unspecified site; Z98.890 Other specified postprocedural states; Z79.899 Other long term (current) drug therapy; Z79.891 Long term (current) use of opiate analgesic; Z88.8 Allergy status to other drugs, medicaments and biological substances

== ENCOUNTER → 2020-07-05 | Outpatient (CLI) | payer OTHER ==
[~2020-07-05] VITALS: Ht 162.6 cm; Wt 111.8 kg
[2020-07-05 11:05] VITALS: BP 134/69
--- NOTE | 2020-07-05 11:15 | NUR ---
Pain Clinic Assessment: 1. History of Osteoarthritis: EVERYWHERE History of Rheumatoid Arthritis: Not Applicable 2. Height: 5 ft. 4 in. 162.6 cm. Weight: 246.4 lb. oz. 111.767 kg. Patient's BMI: 42.3 3. Vital Signs: BP: 134/69 Pulse: 89 Resp: 22 Temp: 02 Sat: 97 ECG Mon: 4. Pain Intensity: 8 5. Fall Risk: Dizziness: N Needs help standing or walking: Y Fallen in the last 3 months: N Fall risk comments: 6. Patient on Blood Thinner: None 7. History of Hypertension: Y 8. Opioid Therapy greater than 6 weeks: N Opiate Contract Signed: 9. Risk Assessment Tool Provided: LOW RISK / 10. Functional Assessment Tool: 11. Recreational Drug Use: Never Drug Type: Tobacco Use: Former Smoker Tobacco Type: Amount or Packs/day: How Many Years: Alcohol Use: No Frequency: Quant:
--- NOTE | 2020-07-11 07:57 | HPC ---
[address] [place] [address] PAIN MANAGEMENT CONSULTATION Name: ODALYS KAHN [id number] Admission: 07/05/20 Attend Phys: Aren Brown DO Discharge: Date of : 55 Report #: [id number] THIS REPORT FOR: cc: BIRD BLACK Physician not on staff Aren Brown DO ~ DATE OF SERVICE: 07/05/2020 CHIEF COMPLAINT: Low back pain, bilateral lower extremity pain with paresthesias. HISTORY OF PRESENT ILLNESS: As you know, the patient is a class III, morbidly obese 65-year-old female with longstanding history of lumbar radicular pain. She has been referred to our clinic originally for cervical radicular symptoms and treated with cervical epidural injections. We then transitioned over the lumbar epidural injections as she continued to experience axial back pain radiating down the legs and dermatomal distribution. She returns today in followup visit to undergo lumbar epidural injection under fluoroscopic guidance to address recurrent 8/10 pain. She states the previous epidural injection given at our visit of 03/14/2020 gave 90% improvement in overall pain until just recently. She returns today for the next in the series of lumbar epidural injections. ALLERGIES: PROVERA, IBUPROFEN, GABAPENTIN, TRAZODONE, MEPERIDINE. CURRENT MEDICATIONS: Venlafaxine, meloxicam, tizanidine, Symproic, Cytomel, zolpidem, levothyroxine, Provera, estradiol, calcium carbonate, cholecalciferol, diltiazem, pregabalin. SOCIAL HISTORY: The patient denies tobacco. Denies IV or illicit drug use. Denies any chronic alcohol use. She is on disability and has been so for years, unaccompanied today. IMAGING: No new imaging available. PQRS: The patient has known arthritic changes of the cervical spine, bilateral shoulders, lumbar spine, bilateral hips. No rheumatoid arthritis. She is placing pain intensity today at 8/10. She is a fall risk, but has not had a fall in last 3 months. She utilizes a roller walker for ambulation and balance. She is not on blood thinners, but is treated for hypertension. She is on no chronic opioids, has a low opioid addiction potential. Pain impact is 55/70, severe interference of daily activities secondary to pain. PHYSICAL EXAMINATION: VITAL SIGNS: Blood pressure 134/69, pulse 89, respiratory rate 22 and unlabored. The patient is 97% on room air. Height 5 feet 4 inches tall, weight [address] [address] PAIN MANAGEMENT CONSULTATION Name: ODALYS KAHN Room #: REG [facility].#: [id number] Admission: 07/05/20 Attend Phys: Aren Brown DO Discharge: Date of : 55 Report #: [id number] 246.4 pounds, BMI calculated 42.3. GENERAL: Well-developed, well-nourished, well-hydrated, class III, severely morbidly obese 65-year-old female appearing stated age, no acute distress. Pain is rated today 4/10. HEENT: Normocephalic, atraumatic. Pupils are round, and responsive. The patient is wearing a mask in compliance with COVID-19 regulations. Speech is normal. EXTREMITIES: Show no clubbing, no cyanosis. No appreciable edema. MUSCULOSKELETAL: Lower extremity strength is symmetrical, but deconditioning is noted. No muscle bulk and tone changes when comparing lower extremities. Seated straight leg raising remains negative. Supine straight leg raising remains negative. Blake's test is positive. Ankle clonus negative. Babinski is negative. Gait is antalgic. ASSESSMENT: 1. Recurrent lumbar radiculopathy. 2. Neural foraminal stenosis of lumbar spine. 3. Lateral recess stenosis of lumbar spine. 4. Lumbar degeneration. 5. Chronic intractable pain. PLAN: 1. The patient returns today in followup visit to undergo a lumbar epidural injection under fluoroscopic guidance. She reports a 90% improvement in overall symptoms with the injection provided at our last visit. We are pleased to see the patient has done well, returning today in followup visit stating pain has just slowly begun to return. She returns for the next in the series of epidural injections. She has been advised risks and benefits of the procedure, states understood and wished to proceed. 2. The patient states that she is having difficulty finding a physician to write for her ongoing pain medications. She is receiving current medications through her workmen's compensation physician, but apparently this physician is beginning to prepare to retire. I have advised the patient there are clinics in the [facility] that she could seek a treatment for medication management with [place] [facility], who has an office in the [facility] very convenient for the patient. She will follow up with them to discuss ongoing medication management. At this time, we are not taking on any new medication management patients. 3. We have plans to see the patient back in followup visit on an as needed basis to address any residual lumbar radicular symptoms with the next in the series of epidural injections. We are once again hopeful the patient will see good and prolonged benefit with today's epidural injection and will be available to see her back on an as needed basis. PROCEDURE NOTE [address] [address] PAIN MANAGEMENT CONSULTATION Name: ODALYS KAHN Room #: REG [facility]#: [id number] Admission: 07/05/20 Attend Phys: Aren Brown DO Discharge: Date of : 55 Report #: [id number] DESCRIPTION OF PROCEDURE: L5-S1 interlaminar epidural steroid injection under fluoroscopic guidance. After obtaining written consent, the patient was taken back to fluoroscopy suite, placed in prone position with pillow under abdomen to decrease lumbar lordosis. Skin overlying lumbosacral area then prepped and draped in aseptic fashion. The L5-S1 vertebral interspace identified by AP fluoroscopy. Skin and subcutaneous tissue overlying target site injection anesthetized with 3 mL of 1% lidocaine. A 20-gauge 4-1/2 inch Tuohy needle advanced under fluoroscopic guidance towards the epidural space using a paramedian approach. Epidural space identified using loss of resistance to air technique. After negative aspiration for heme or cerebrospinal fluid, 1 mL of Omnipaque injected. Lumbar epidurogram confirmed using both AP and lateral fluoroscopy. After negative aspiration for heme or cerebrospinal fluid, 5 mL of a solution containing 2 mL 40 mg per mL, 80 mg total triamcinolone along with 3 mL of lidocaine 1% injected slowly. Needle retracted care home, flushed with 1 mL of 1% lidocaine, then removed. Sterile bandage placed over injection site. No new motor deficits present in the lower extremities following procedure. The patient tolerated procedure well, carefully escorted to recovery room in stable condition. No apparent complication. After meeting discharge criteria, the patient discharged home. <ELECTRONICALLY SIGNED> By: Aren Brown DO 07/11/20 [id number] 1931 Aren Brown DO /nt
== END | disposition home or self-care (01) ==
LOC: PAIN 06:51
PROVIDERS: ATTEND Anesthesiology Pain Medicine
DX: M51.16 Intervertebral disc disorders with radiculopathy, lumbar region (principal); M48.061 Spinal stenosis, lumbar region without neurogenic claudication; G89.29 Other chronic pain; I10 Essential (primary) hypertension; M19.90 Unspecified osteoarthritis, unspecified site; Z98.890 Other specified postprocedural states; Z79.899 Other long term (current) drug therapy; Z88.8 Allergy status to other drugs, medicaments and biological substances

== ENCOUNTER → 2020-08-01 | Outpatient (CLI) | payer OTHER ==
[~2020-08-01] VITALS: Ht 162.6 cm; Wt 111.0 kg
[2020-08-01 13:54] VITALS: BP 151/71
--- NOTE | 2020-08-01 14:04 | NUR ---
Pain Clinic Assessment: 1. History of Osteoarthritis: EVERYWHERE History of Rheumatoid Arthritis: Not Applicable 2. Height: 5 ft. 4 in. 162.6 cm. Weight: 244.6 lb. oz. 110.950 kg. Patient's BMI: 42.0 3. Vital Signs: BP: 151/71 Pulse: 113 Resp: 20 Temp: 02 Sat: 95 ECG Mon: 4. Pain Intensity: 9 5. Fall Risk: Dizziness: N Needs help standing or walking: Y Fallen in the last 3 months: N Fall risk comments: 6. Patient on Blood Thinner: None 7. History of Hypertension: Y 8. Opioid Therapy greater than 6 weeks: N Opiate Contract Signed: 9. Risk Assessment Tool Provided: LOW RISK 1 10. Functional Assessment Tool: 59/70 11. Recreational Drug Use: Never Drug Type: Tobacco Use: Former Smoker Tobacco Type: Amount or Packs/day: How Many Years: Alcohol Use: No Frequency: Quant:
--- NOTE | 2020-08-02 07:35 | HPC ---
[facility] [place] [address] PAIN MANAGEMENT CONSULTATION Name: ODALYS KAHN Room #: REG SUZE JustinCelsoLuis M.#: [id number] Admission: 08/01/20 Attend Phys: Aren Brown DO Discharge: Date of : 55 Report #: [id number] THIS REPORT FOR: cc: BIRD BLACK Physician not on staff Aren Brown DO ~ DOC #: [id number] cc: MD Aren Ramírez DO DATE OF SERVICE: 08/01/2020 REFERRING PHYSICIAN: Dr. Felix Null. CHIEF COMPLAINT: Low back pain, bilateral lower extremity pain and paresthesias. HISTORY OF PRESENT ILLNESS: As you know, the patient is a class III morbidly obese 65-year-old female with longstanding history of lumbar radicular pain. She has been referred to our clinic to undergo lumbar epidural injections under fluoroscopic guidance. As you are aware, the patient takes opioid medication in the form of oxycodone 5 mg 4 times a day along with the use of pregabalin for neuropathic control despite these medications and she continues to experience symptoms. She was referred back to our clinic to discuss other treatment options. She underwent a lumbar epidural injection under fluoroscopic guidance at her last visit for which she indicates pain and improvement of 50-60% but unfortunately her symptoms have reoccurred. She returns today in followup visit to undergo next in the series of epidural injections. She also wants to discuss the possibility of looking towards a spinal cord stimulator as an option in hopes of improving pain. We had discussed in the past and she wishes to discuss today again, the findings in her MRI and whether or not surgical options might be required. ALLERGIES: PROVERA, IBUPROFEN, GABAPENTIN, TRAZODONE, MEPERIDINE. CURRENT MEDICATIONS: Venlafaxine, meloxicam, tizanidine, Symproic, diltiazem, pregabalin, levothyroxine, Provera, estradiol, calcium carbonate, and cholecalciferol. SOCIAL HISTORY: The patient denies tobacco. Denies IV or illicit drug use. Denies any chronic alcohol use. She is on disability. Unaccompanied today. IMAGING: No new imaging available. PQRS: The patient has known cervical osteoarthritis, bilateral shoulder osteoarthritis, lumbar osteoarthritis and bilateral hip osteoarthritis. No rheumatoid arthritis. She is a fall risk, but has not had a fall in last [address] [address] PAIN MANAGEMENT CONSULTATION Name: ODALYS KAHN Room #: REG CLI [facility]#: [id number] Admission: 08/01/20 Attend Phys: Aren Brown DO Discharge: Date of : 55 Report #: [id number] months. She is utilizing a roller walker for ambulation and balance. She is not on blood thinners, but is treated for hypertension. She is on chronic opioids, has a low opioid addiction potential based on our assessment tool. Pain impact is 59-70, severe, interference of daily activities secondary to pain. PHYSICAL EXAMINATION: VITAL SIGNS: Blood pressure 151/71, pulse is 113, respiratory rate 20, unlabored. The patient 95% on room air. Height 5 feet 4 inches tall, weight 244.6 pounds, BMI calculated 42. GENERAL: Well-developed, well-nourished, well-hydrated, severely morbidly obese 65-year-old female appearing stated age, pain is rated today, 9/10. HEENT: Normocephalic, atraumatic. Pupils are round and responsive. Extraocular muscles are intact. She is wearing mask in compliance with COVID-19 regulations. EXTREMITIES: Show no clubbing, no cyanosis, 1+ nonpitting lower extremities edema. MUSCULOSKELETAL: Lower extremity strength is symmetrical, but deconditioning is once again noted. Seated straight leg raising negative. Supine straight leg raising negative. Fabere's test is positive. Modified Gaenslen's positive for axial back pain. Ankle clonus negative. Babinski is negative. Tactile sensation is noted equal and throughout. ASSESSMENT: 1. Lumbar radiculopathy. 2. Neural foraminal stenosis of lumbar spine. 3. Lateral recess stenosis of lumbar spine. 4. Lumbar degeneration. 5. Chronic intractable pain. PLAN: 1. The patient returns today in followup visit where we have reviewed imaging obtained 12/29/2019 which shows multilevel spondylolisthesis, moderate to severe spondylosis, broad-based posterior disk bulge at L4-L5 with foraminal stenosis and mass effect upon the neural foramen and exiting nerve roots, and the mass effect upon the lateral recess at L2-L3 and the arthritic changes there in. After we discussed this MRI, we then correlated to her current findings, which is consistent with central canal stenosis and neural foraminal contributions. We discussed with the patient the treatment options, we have available after reviewing this MRI. The following was discussed with the patient today. 2. We discussed physical therapy, stretching exercises, this is in a concerted effort at weight loss. We discussed medication management with suggestions of treatment to include escalation in her neuropathic medications. We discussed a lumbar epidural injection under fluoroscopic guidance for which the patient was referred to our clinic. We also discussed spinal cord stimulator therapy, but did advise the patient this would provide only temporizing measures and would [address] [address] PAIN MANAGEMENT CONSULTATION Name: ODAYLS KAHN Room #: REG [facility]#: [id number] Admission: 08/01/20 Attend Phys: Aren Brown DO Discharge: Date of : 55 Report #: [id number] not provide lifetime benefit. Given the findings of her MRI she will likely need to look toward surgical options, although at this time, she wishes to avoid that option. After reviewing risks and benefits, she chose to undergo lumbar epidural injection and to entertain the concept of a possible spinal cord stimulator trial. 3. The patient was advised risks and benefits of a lumbar epidural injection. These risks include but are not necessarily limited to bleeding, bruising, infection, worsening pain, no relief of pain, also risk of temporary or permanent, muscle weakness, temporary or permanent nerve damage, possible paralysis, and . The patient states understood and wished to proceed. 4. The patient was given information today about the Nevro device for neuromodulation. She was also given the phone numbers and contact information in regards to the psychiatric evaluation that will be required if the patient does wish to move forward with a trial implantation. The patient will contact his psychiatrist on the list, find the first available, and have an appointment and follow up with them. Once they have completed their psychiatric evaluation and assuming no concerning psychopathology, we will then begin the process of scheduling the patient to undergo a spinal cord stimulator trial. If the trial is successful the patient will be referred on to neurosurgery for implantation of the device. The patient will contact our clinic once she has completed her psychiatric evaluation. We will look to findings and determine whether or not psychiatric evaluation is appropriate and whether or not the patient might be a good candidate to undergo treatment with spinal cord stimulator. The patient was given information today in both written and digital form to review before she discussed her case with the psychiatrist. 5. No medication changes made at today's visit. The patient will continue new current medical therapy as prior prescribed. 6. We plan to see the patient back in followup visit for next in the series of lumbar epidural injections or to discuss scheduling for a spinal cord stimulator trial if she wishes to move in that direction. PROCEDURE NOTE PROCEDURE PERFORMED: L3-L4 interlaminar epidural steroid injection under fluoroscopic guidance. DESCRIPTION OF PROCEDURE: After obtaining written consent, the patient was taken back to fluoroscopy suite, placed in prone position with pillow under abdomen to decrease lumbar lordosis. The L3-L4 vertebral bodies were identified under AP fluoroscopy. Skin and subcutaneous tissue overlying target site injection anesthetized with 3 mL 1% lidocaine. A 20-gauge 4-1/2 inch Tuohy needle advanced under fluoroscopic guidance towards the epidural space using a midline approach. Epidural space identified using loss of resistance to air technique. After negative aspiration for heme or cerebrospinal fluid, 1 mL of Omnipaque injected. Lumbar epidurogram confirmed [address] [address] PAIN MANAGEMENT CONSULTATION Name: ODALYS KAHNN Room #: REG Roe [facility]kson#: [id number] Admission: 08/01/20 Attend Phys: Aren Brown DO Discharge: Date of : 55 Report #: [id number] using both AP and lateral fluoroscopy. After negative aspiration for heme or cerebrospinal fluid, 5 mL solution containing 2 mL 40 mg per mL 80 mg total triamcinolone along with 3 mL of lidocaine, 1% injected slowly. Needle retracted care home flushed with 1 mL of 1% lidocaine and then removed. Sterile bandage placed over injection site. No new motor deficits present in lower extremity following procedure. The patient tolerated the procedure well, carefully escorted to recovery room in stable condition. No apparent complications. After meeting discharge criteria, the patient discharged home. Aren Brown DO JEJ/SWA <ELECTRONICALLY SIGNED> By: Aren Brown DO 08/02/20 [id number] Aren Brown DO /nt
== END | disposition home or self-care (01) ==
LOC: PAIN 12:08
PROVIDERS: ATTEND Anesthesiology Pain Medicine
DX: M51.16 Intervertebral disc disorders with radiculopathy, lumbar region (principal); M48.061 Spinal stenosis, lumbar region without neurogenic claudication; G89.29 Other chronic pain; I10 Essential (primary) hypertension; M19.90 Unspecified osteoarthritis, unspecified site; Z98.890 Other specified postprocedural states; Z79.899 Other long term (current) drug therapy; Z79.891 Long term (current) use of opiate analgesic; Z88.8 Allergy status to other drugs, medicaments and biological substances

== ENCOUNTER → 2020-09-27 | Outpatient (CLI) | payer OTHER ==
[~2020-09-27] VITALS: Ht 162.6 cm; Wt 112.3 kg
--- NOTE | ~2020-09-27 | HPC ---
[facility] [place] [address] PAIN MANAGEMENT CONSULTATION Name: ODALYS KAHN Room #: REG [facility] M..#: [id number] Admission: 09/27/20 Attend Phys: Aren Brown DO Discharge: Date of : 55 Report #: [id number] THIS REPORT FOR: cc: BIRD BLACK Physician not on staff Aren Brown DO ~ DOC #: [id number] cc: Manish Joseph MD, MIKE Foster DO DATE OF SERVICE: 09/27/2020 REFERRING NURSE PRACTITIONER: Jacquie Matthews NP CHIEF COMPLAINT: Low back pain, bilateral lower extremity pain and paresthesias. HISTORY OF PRESENT ILLNESS: As you know, the patient is a 65-year-old female who was referred back to our clinic to trial a spinal cord stimulator to determine if her symptoms would improve. She has completed the spinal cord stimulator trial with a 90% improvement in her back and lower extremity pain. She is very pleased with response to this spinal cord stimulator and wishes to move forward with a permanent implant. She returns today for explantation of the device. She is placing pain at no greater than 4/10 and this is involving the cervical region and pain at the lower back is rated at 0-1/10. She is extremely pleased with the spinal cord stimulating therapy and wishes to move forward with a permanent implant with Nevro device. ALLERGIES: PROVERA, IBUPROFEN, GABAPENTIN, TRAZODONE, MEPERIDINE. CURRENT MEDICATIONS: See chart. SOCIAL HISTORY: The patient continues to deny tobacco use. Denies IV or illicit drug use. Denies any chronic alcohol use. She is on disability. She is unaccompanied at today's visit. IMAGING: No new imaging available. PQRS: The patient has known arthritic changes of the cervical spine, bilateral shoulders, lumbar spine, bilateral hips and knees. No rheumatoid arthritis. She is placing pain intensity at 4/10 involving the cervical spine, was 0-1/10 involving the lumbar spine. She is a fall risk, but has not had a fall in last 3 months. She is using a roller walker for ambulation. She is on no blood thinners, but is treated for hypertension. She is not on chronic opioids, has a low opiate addiction potential. Pain impact today rated at 59/70. PHYSICAL EXAMINATION: [facility] [address] [place] [address] PAIN MANAGEMENT CONSULTATION Name: ODALYS KAHN Room #: REG CLI [facility]#: [id number] Admission: 09/27/20 Attend Phys: Aren Brown DO Discharge: Date of : 55 Report #: [id number] VITAL SIGNS: Blood pressure 138/61, pulse 92, respiratory rate 18 and unlabored. The patient is 98% on room air. Height 5 feet 4 inches tall, weight 247.6 pounds, BMI calculated at 42.5. GENERAL: Well-developed, well-nourished, well-hydrated 65-year-old female appearing stated age. She is placing pain in the low back at 0-1/10. HEENT: Normocephalic, atraumatic. Pupils equal, round and responsive. EXTREMITIES: Show no clubbing, no cyanosis. No appreciable edema. MUSCULOSKELETAL: Lower extremity strength is symmetrical, but deconditioned. Muscle bulk and tone equal and symmetrical in lower extremities. She has bandaging over the lumbar spine that is unchanged from our implantation of the device 1 week ago. ASSESSMENT: 1. Lumbar radiculopathy. 2. Neural foraminal stenosis of lumbar spine. 3. Lateral recess of the lumbar spine. 4. Lumbar degeneration. 5. Chronic intractable pain. PLAN: 1. The patient returns today in followup visit for explantation of spinal cord stimulating leads. She did very well with the trial, reporting up to 90% improvement in overall pain. She states she was able to ambulate more effectively. She was able to stand and walk without her roller walker or assistance. She is even able to go and shop and do all kinds of activities she has not been able to do prior to the implantation. She is very pleased with the implant and wishes to move forward with the permanent as quickly as possible. 2. We have advised the patient to contact Dr. Joseph's office and return to see either one of the nurse practitioners of Dr. Joseph to begin the process of scheduling a permanent implant. The patient can follow up with practitioner, Jacquie Matthews, who is the referring nurse practitioner or Dr. Joseph directly. We recommend that she have a Nevro implanted as she has trialed this device with good efficacy. 3. No medication changes made at today's visit. The patient will continue current medical therapy as prior prescribed. 4. We plan to see the patient back in followup visit on an as-needed basis. We wish her luck with the permanent implantation. PROCEDURE NOTE DESCRIPTION OF PROCEDURE: Explantation of spinal cord stimulating leads. The patient was placed in a seated position. All Op-Site bandaging and Steri-Strips were removed. There were 2 spinal cord stimulator leads in place. These were removed without complication. No pain. No paresthesias. Each lead had their 8 electrodes and tips attached. A sterile bandage was placed over the [address] [address] PAIN MANAGEMENT CONSULTATION Name: ODALYS KAHN Room #: REG [facility].#: [id number] Admission: 09/27/20 Attend Phys: Aren Brown DO Discharge: Date of : 55 Report #: [id number] insertion sites. We advised the patient to watch for any drainage from the insertion sites, increasing pain, or increasing back symptoms or headache. If she notes any fever, chills, night sweats contact our clinic. She is not to bathe for the first 24 hours. She then can follow up with showers. No pools for the next week. After meeting our discharge criteria, the patient is discharged home. Aren Brown DO JEJ/MUK By: [id number] Aren Brown DO /nt
[2020-09-27 09:03] VITALS: BP 138/61
--- NOTE | 2020-09-27 09:14 | NUR ---
Pain Clinic Assessment: 1. History of Osteoarthritis: EVERYWHERE History of Rheumatoid Arthritis: Not Applicable 2. Height: 5 ft. 4.02 in. 162.6 cm. Weight: 247.6 lb. oz. 112.311 kg. Patient's BMI: 42.5 3. Vital Signs: BP: 138/61 Pulse: 92 Resp: 18 Temp: 02 Sat: 98 ECG Mon: 4. Pain Intensity: 4 5. Fall Risk: Dizziness: Y Needs help standing or walking: N Fallen in the last 3 months: N Fall risk comments: 6. Patient on Blood Thinner: None 7. History of Hypertension: Y 8. Opioid Therapy greater than 6 weeks: N Opiate Contract Signed: 9. Risk Assessment Tool Provided: LOW RISK 1 10. Functional Assessment Tool: 59/70 11. Recreational Drug Use: Never Drug Type: Tobacco Use: Former Smoker Tobacco Type: Amount or Packs/day: How Many Years: Alcohol Use: No Frequency: Quant:
== END ==
LOC: PAIN 06:57
PROVIDERS: ATTEND Anesthesiology Pain Medicine
DX: M51.16 Intervertebral disc disorders with radiculopathy, lumbar region (principal); M48.061 Spinal stenosis, lumbar region without neurogenic claudication; G89.4 Chronic pain syndrome; Z79.899 Other long term (current) drug therapy; Z79.891 Long term (current) use of opiate analgesic